=== PATIENT | male | born 1945 ===

== ENCOUNTER 2017-09-02 14:45 | Observation (INO) | payer MEDICARE, MEDICAID ==
[2017-09-02 14:45] VITALS: BMI 28.1
[2017-09-02] MEDS ORDERED: Sodium Chloride 0.9% 500 ML IV STA (15:19)
--- NOTE | 2017-09-02 15:19 | ED PDOC ---
HPI: Chest Pain Time Seen by Provider: 09/02/17 15:00 Chief Complaint (Nursing): Chest Pain Chief Complaint (Provider): Chest Pain History Per: Patient History/Exam Limitations: no limitations Onset/Duration Of Symptoms: Days (x1) Current Symptoms Are (Timing): Gone Now Additional Complaint(s): 72 year old male with a past medical history of asthma, diabetes, and hypercholesterolemia, presents to the emergency department complaining of chest pain, onset this morning. Currently, pain has improved. He states pain was non- radiating. Denies any associated nausea, vomiting, diarrhea, shortness of breath , headache, leg swelling, dizziness, numbness, or weakness. PMD: Dr. Vinod Ricci Past Medical History Reviewed: Historical Data, Nursing Documentation, Vital Signs Vital Signs: Last Vital Signs Temp 97.6 F 09/02/17 14:55 Pulse 100 H 09/02/17 15:23 Resp 20 09/02/17 14:55 BP 193/96 H 09/02/17 14:55 Pulse Ox 97 09/02/17 15:22 - Medical History PMH: Asthma, Diabetes, HTN, Hypercholesterolemia Denies: HIV, Chronic Kidney Disease - Family History Family History: States: Unknown Family Hx - Home Medications Home Medications: Ambulatory Orders Medication Instructions Recorded Atenolol [Tenormin] 50 mg PO DAILY 03/14/16 Isosorbide Mononitrate ER [Imdur 30 mg PO DAILY 03/14/16 ER] Levothyroxine [Synthroid] 50 mcg PO 0630 03/14/16 glyBURIDE [Micronase] 5 mg PO DAILY 03/14/16 - Allergies Allergies/Adverse Reactions: Allergies Allergy/AdvReac Type Severity Reaction Status Date / Time No Known Allergies Allergy Verified 08/20/14 12:39 Review of Systems ROS Statement: Except As Marked, All Systems Reviewed And Found Negative Constitutional: Negative for: Fever, Chills Cardiovascular: Positive for: Chest Pain Respiratory: Negative for: Shortness of Breath Gastrointestinal: Negative for: Nausea, Vomiting, Diarrhea Neurological: Negative for: Weakness, Numbness, Headache, Dizziness Physical Exam - Reviewed Nursing Documentation Reviewed: Yes Vital Signs Reviewed: Yes - Physical Exam Appears: Positive for: Non-toxic, No Acute Distress Head Exam: Positive for: ATRAUMATIC, NORMAL INSPECTION, NORMOCEPHALIC Skin: Positive for: Normal Color, Warm, Dry Eye Exam: Positive for: EOMI, Normal appearance, PERRL ENT: Positive for: Normal ENT Inspection Neck: Positive for: Normal, Painless ROM Cardiovascular/Chest: Positive for: Regular Rate, Rhythm. Negative for: Murmur Respiratory: Positive for: Normal Breath Sounds. Negative for: Accessory Muscle Use, Respiratory Distress Pulses-Dorsalis Pedis (L): 2+ Pulses-Dorsalis Pedis (R): 2+ Gastrointestinal/Abdominal: Positive for: Normal Exam, Soft. Negative for: Tenderness Back: Positive for: Normal Inspection. Negative for: L CVA Tenderness, R CVA Tenderness, Vertebral Tenderness Extremity: Positive for: Normal ROM. Negative for: Tenderness, Pedal Edema, Calf Tenderness, Deformity Neurologic/Psych: Positive for: Alert, Oriented (x3). Negative for: Motor/ Sensory Deficits - Laboratory Results Result Diagrams: 09/02/17 15:36 09/02/17 15:38 Interpretation Of Abn Labs: no acute - ECG ECG: Positive for: Interpreted By Me, Viewed By Me ECG Rhythm: Positive for: Sinus Rhythm, Right Bundle Branch Block Interpretation Of Abn EKG: similar to old O2 Sat by Pulse Oximetry: 97 (RA) Pulse Ox Interpretation: Normal - Radiology X-Ray: Interpreted by Me, Viewed By Mo X-Ray Interpretation: No Acute Disease - Progress ED Course And Treament: 1839: Stable. Pain free. Tolerated PO. Will need further eval for acs. Multiple risk factors. Spoke with Dr. Massey. Will admit obs. Medical Decision Making Medical Decision Making: Time: 15:17 Initial Plan: --EKG --CMP --Troponin I --CBC w/ differential --PTT --Prothrombin time --Chest x-ray --Aspirin 325 mg PO --IV fluids 500 ml at 100 mls/hr --Reevaluation Scribe Attestation: Documented by Abigail Booth, acting as a scribe for Johnnie Andre MD Provider Scribe Attestation: All medical record entries made by the Scribe were at my direction and personally dictated by me. I have reviewed the chart and agree that the record accurately reflects my personal performance of the history, physical exam, medical decision making, and the department course for this patient. I have also personally directed, reviewed, and agree with the discharge instructions and disposition Disposition - Clinical Impression Clinical Impression: Chest pain - Patient ED Disposition Is Patient to be Admitted: Yes Counseled Patient/Family Regarding: Studies Performed, Diagnosis - Disposition Disposition Time: 18:39 Condition: FAIR - Pt Status Changed To: Hospital Disposition Of: Observation - POA Present On Arrival: None Core Measure Indicators: Chest Pain
[2017-09-02 15:45] LABS: BASO % 0.7 % (0.0-2.0); EOS # 0.2 K/uL (0.0-0.7); EOS % 3.9 % (0.0-4.0); HEMOGLOBIN 13.1 g/dL (12.0-18.0); LYMPH # 0.9 K/uL (1.0-4.3); LYMPH % 17.6 % (20.0-40.0); MEAN CORPUSCULAR HEMOGLOBIN 30.1 pg (27.0-31.0); MEAN CORPUSCULAR HGB CONC 33.8 g/dL (33.0-37.0); MEAN PLATELET VOLUME 8.1 fl (7.2-11.7); MONO # 0.3 K/uL (0.0-0.8); MONO % 5.9 % (0.0-10.0); NEUT # 3.7 K/uL (1.8-7.0); NEUT % 71.9 % (50.0-75.0); NRBC % 0.2 % (0.0-0.0); RBC 4.36 Mil/uL (4.40-5.90); RED CELL DISTRIBUTION WIDTH 13.7 % (11.5-14.5); WHITE BLOOD COUNT 5.2 K/uL (4.8-10.8)
[2017-09-02 15:52] LABS: ALB/GLOB RATIO 1.5 (1.0-2.1); ALBUMIN 4.4 g/dL (3.5-5.0); ALT/SGPT 29 U/L (21-72); AST/SGOT 26 U/L (17-59); BLOOD UREA NITROGEN 16 mg/dl (9-20); CALCIUM 9.7 mg/dL (8.4-10.2); GFR AFRICAN-AMERICAN > 60; GFR NON-AFRICAN AMERICAN > 60
[2017-09-02 15:56] LABS: PARTIAL THROMBOPLASTIN TIME 28.5 Seconds (25.6-37.1); PROTHROMBIN TIME 11.1 Seconds (9.8-13.1)
--- NOTE | 2017-09-02 16:38 | RAD ---
HISTORY: Dyspnea COMPARISON: 03/07/2016 FINDINGS: LUNGS: No active pulmonary disease. PLEURA: No significant pleural effusion identified, no pneumothorax apparent. CARDIOVASCULAR: No radiographic findings to suggest acute or significant cardiovascular disease. OSSEOUS STRUCTURES: No significant abnormalities. VISUALIZED UPPER ABDOMEN: Normal. OTHER FINDINGS: None. IMPRESSION: No active disease. No significant interval change compared to the prior examination(s).
--- NOTE | 2017-09-02 19:41 | CP.PCM.HP ---
History of Present Illness - History of Present Illness History of Present Illness: 72 yo male with history of HTN, DM2, HLD and Asthma came in because of mid- chest pain since this morning. Pain was intermittent, non-radiating and not associated with nausea, vomiting or SOB. He decided to seek consultation when condition persisted in to the afternoon. Present on Admission - Present on Admission Any Indicators Present on Admission: No History of DVT/PE: No History of Uncontrolled Diabetes: No Urinary Catheter: No Decubitus Ulcer Present: No Review of Systems - Review of Systems All systems: reviewed and no additional remarkable complaints except (aside from those mentioned above, 12 point system review were negative by me) Past Patient History - Tetanus Immunizations Tetanus Immunization: Unknown - Past Medical History & Family History Past Medical History?: Yes Past Family History: Reviewed and not pertinent - Past Social History Smoking Status: Never Smoked Alcohol: Occasional Drugs: Denies - CARDIAC Hx Hypercholesterolemia: Yes Hx Hypertension: Yes - PULMONARY Hx Asthma: Yes - NEUROLOGICAL Hx Neurological Disorder: Yes Other/Comment: Cervical Spinal Stenosis, S/P Laminectomy 03/2016 - HEENT Hx HEENT Problems: No - RENAL Hx Chronic Kidney Disease: No - ENDOCRINE/METABOLIC Hx Endocrine Disorders: Yes Hx Diabetes Mellitus Type 2: Yes - HEMATOLOGICAL/ONCOLOGICAL Hx Human Immunodeficiency Virus (HIV): No - INTEGUMENTARY Hx Dermatological Problems: No - MUSCULOSKELETAL/RHEUMATOLOGICAL Hx Musculoskeletal Disorders: No Hx Falls: Yes Other/Comment: Intoxicated and fell while trying to get out of motorized wheelchair - GASTROINTESTINAL Hx Gastrointestinal Disorders: No - GENITOURINARY/GYNECOLOGICAL Hx Genitourinary Disorders: No - PSYCHIATRIC Hx Substance Use: Yes (1 case of beer a day) - SURGICAL HISTORY Hx Surgeries: Yes Other/Comment: S/P Decompression Laminectomy - ANESTHESIA Hx Anesthesia: Yes Hx Anesthesia Reactions: No Hx Malignant Hyperthermia: No Meds Allergies/Adverse Reactions: Allergies Allergy/AdvReac Type Severity Reaction Status Date / Time No Known Allergies Allergy Verified 08/20/14 12:39 Physical Exam - Constitutional Appears: No Acute Distress - Head Exam Head Exam: ATRAUMATIC - Eye Exam Eye Exam: absent: Scleral icterus - ENT Exam ENT Exam: Mucous Membranes Moist - Neck Exam Neck exam: Negative for: Meningismus - Respiratory Exam Respiratory Exam: absent: Rhonchi, Wheezes, Respiratory Distress - Cardiovascular Exam Cardiovascular Exam: REGULAR RHYTHM, +S1, +S2 - GI/Abdominal Exam GI & Abdominal Exam: Soft. absent: Tenderness - Rectal Exam Rectal Exam: Deferred - Extremities Exam Extremities exam: Negative for: calf tenderness, pedal edema - Back Exam Back exam: absent: tenderness - Neurological Exam Neurological exam: Alert, Oriented x3 - Psychiatric Exam Psychiatric exam: Normal Affect - Skin Skin Exam: Dry, Intact Results - Vital Signs Recent Vital Signs: Last Vital Signs Temp 97.6 F 09/02/17 14:55 Pulse 100 H 09/02/17 15:23 Resp 20 09/02/17 14:55 BP 193/96 H 09/02/17 14:55 Pulse Ox 97 09/02/17 18:51 - Labs Result Diagrams: 09/02/17 15:36 09/02/17 15:38 Labs: Laboratory Results - last 24 hr 09/02/17 09/02/17 09/02/17 15:36 15:38 15:38 WBC 5.2 RBC 4.36 L Hgb 13.1 Hct 38.8 MCV 89.0 D MCH 30.1 MCHC 33.8 RDW 13.7 Plt Count 195 MPV 8.1 Neut % (Auto) 71.9 Lymph % (Auto) 17.6 L [place] % (Auto) 5.9 Eos % (Auto) 3.9 Baso % (Auto) 0.7 Neut # 3.7 Lymph # 0.9 L [place] # 0.3 Eos # 0.2 Baso # 0.0 PT 11.1 INR 1.0 APTT 28.5 Sodium 141 Potassium 3.9 Chloride 100 Carbon Dioxide 23 Anion Gap 22 H BUN 16 Creatinine 1.1 Est GFR ( Amer) > 60 Est GFR (Non-Af Amer) > 60 Random Glucose 316 H Calcium 9.7 Total Bilirubin 0.4 AST 26 ALT 29 Alkaline Phosphatase 67 Troponin I < 0.0120 Total Protein 7.3 Albumin 4.4 Globulin 2.9 Albumin/Globulin Ratio 1.5 Assessment & Plan - Assessment and Plan (Free Text) Assessment: 72 yo male with history of HTN, DM2 and HLD came in because of mid-chest pain since this morning. Pain was intermittent, non-radiating and not associated with nausea, vomiting or SOB. He decided to seek consultation when condition persisted in to the afternoon. 1. Chest Pain pain still present on mid-chest but subsiding serial Troponins and EKG ASA 81mg PO daily 2. HLD low fats, low cholesterol diet lipid profile in am 3. HTN BP elevated patient has not been compliant with medication Atenolol 50mg PO daily Isosorbide ER 30mg PO daily 4. DM2 BS uncontrolled Glyburide 5mg PO daily accuchek ACHS with low Lispro coverage diabetic diet 5. DVT prophylaxis Lovenox 40mg SC daily
[2017-09-03 05:36] VITALS: RESP 18
[2017-09-03] MEDS ORDERED: Influenza Vaccine 18yr & older 0.5 ML/45 MCG SYR IM ONE (06:00)
[2017-09-03] MEDS ORDERED: Pneumococcal 23-Valent Vaccine IM ONE (06:00)
[2017-09-03] MEDS ORDERED: Levothyroxine 50 MCG TAB PO SCH (06:30)
[2017-09-03 07:02] LABS: BASO # 0.1 K/uL (0.0-0.2); BASO % 0.8 % (0.0-2.0); EOS # 0.6 K/uL (0.0-0.7); EOS % 7.9 % (0.0-4.0); HEMOGLOBIN 12.9 g/dL (12.0-18.0); LYMPH # 1.4 K/uL (1.0-4.3); MEAN CELL VOLUME 88.6 fl (80.0-94.0); MEAN CORPUSCULAR HEMOGLOBIN 29.8 pg (27.0-31.0); MEAN CORPUSCULAR HGB CONC 33.6 g/dL (33.0-37.0); MEAN PLATELET VOLUME 8.6 fl (7.2-11.7); MONO # 0.6 K/uL (0.0-0.8); MONO % 8.1 % (0.0-10.0); NEUT # 4.5 K/uL (1.8-7.0); NEUT % 63.2 % (50.0-75.0); NRBC % 0.1 % (0.0-0.0); RBC 4.33 Mil/uL (4.40-5.90); RED CELL DISTRIBUTION WIDTH 13.8 % (11.5-14.5); WHITE BLOOD COUNT 7.1 K/uL (4.8-10.8)
[2017-09-03 07:32] LABS: BLOOD UREA NITROGEN 15 mg/dl (9-20); CALCIUM 9.5 mg/dL (8.4-10.2); GFR AFRICAN-AMERICAN > 60; GFR NON-AFRICAN AMERICAN > 60; HDL CHOLESTEROL 49 MG/DL (30-70)
[2017-09-03 07:43] LABS: LDL CHOLESTEROL 57 mg/dL (0-129)
[2017-09-03 07:54] VITALS: O2SAT 97
[2017-09-03] MEDS ORDERED: Pantoprazole 40 mg EC Tab PO SCH (09:00)
[2017-09-03] MEDS ORDERED: Enoxaparin 40 mg Syringe SC SCH (09:00)
--- NOTE | 2017-09-03 11:19 | CP.PCM.DIS ---
Provider - Provider Date of Admission: 09/02/17 18:49 Attending physician: Ron Massey MD Time Spent in preparation of Discharge (in minutes): 25 Diagnosis - Discharge Diagnosis (1) Chest pain Status: Acute Comment: 3 series of Troponins negative for ischemic events. patient has been pain free since arriving in telemetry (2) Diabetes 1.5, managed as type 2 Status: Chronic Comment: BS relatively controlled. continue Glyburide 5mg PO daily (3) Hypertension Status: Chronic Comment: BP stable. continue Atenolol and [facility] Hospital Course - Lab Results Lab Results: Most Recent Lab Values WBC 7.1 K/uL (4.8-10.8) 09/03/17 06:00 RBC 4.33 Mil/uL (4.40-5.90) L 09/03/17 06:00 Hgb 12.9 g/dL (12.0-18.0) 09/03/17 06:00 Hct 38.3 % (35.0-51.0) 09/03/17 06:00 MCV 88.6 fl (80.0-94.0) 09/03/17 06:00 MCH 29.8 pg (27.0-31.0) 09/03/17 06:00 MCHC 33.6 g/dL (33.0-37.0) 09/03/17 06:00 RDW 13.8 % (11.5-14.5) 09/03/17 06:00 Plt Count 189 K/uL (130-400) 09/03/17 06:00 MPV 8.6 fl (7.2-11.7) 09/03/17 06:00 Neut % (Auto) 63.2 % (50.0-75.0) 09/03/17 06:00 Lymph % (Auto) 20.0 % (20.0-40.0) 09/03/17 06:00 [place] % (Auto) 8.1 % (0.0-10.0) 09/03/17 06:00 Eos % (Auto) 7.9 % (0.0-4.0) H 09/03/17 06:00 Baso % (Auto) 0.8 % (0.0-2.0) 09/03/17 06:00 Neut # 4.5 K/uL (1.8-7.0) 09/03/17 06:00 Lymph # 1.4 K/uL (1.0-4.3) 09/03/17 06:00 [place] # 0.6 K/uL (0.0-0.8) 09/03/17 06:00 Eos # 0.6 K/uL (0.0-0.7) 09/03/17 06:00 Baso # 0.1 K/uL (0.0-0.2) 09/03/17 06:00 PT 11.1 Seconds (9.8-13.1) 09/02/17 15:38 INR 1.0 (0.9-1.2) 09/02/17 15:38 APTT 28.5 Seconds (25.6-37.1) 09/02/17 15:38 Sodium 138 mmol/l (132-148) 09/03/17 04:25 Potassium 3.6 MMOL/L (3.6-5.0) 09/03/17 04:25 Chloride 100 mmol/L (98-107) 09/03/17 04:25 Carbon Dioxide 27 mmol/L (22-30) 09/03/17 04:25 Anion Gap 15 (10-20) 09/03/17 04:25 BUN 15 mg/dl (9-20) 09/03/17 04:25 Creatinine 1.0 mg/dl (0.8-1.5) 09/03/17 04:25 Est GFR ( Amer) > 60 09/03/17 04:25 Est GFR (Non-Af Amer) > 60 09/03/17 04:25 POC Glucose (mg/dL) 250 mg/dL (65-110) H 09/03/17 10:23 Random Glucose 152 mg/dL (75-110) H 09/03/17 04:25 Calcium 9.5 mg/dL (8.4-10.2) 09/03/17 04:25 Total Bilirubin 0.4 mg/dl (0.2-1.3) 09/02/17 15:38 AST 26 U/L (17-59) 09/02/17 15:38 ALT 29 U/L (21-72) 09/02/17 15:38 Alkaline Phosphatase 67 U/L (38-126) 09/02/17 15:38 Troponin I < 0.01 ng/mL 09/03/17 08:15 Total Protein 7.3 G/DL (6.3-8.2) 09/02/17 15:38 Albumin 4.4 g/dL (3.5-5.0) 09/02/17 15:38 Globulin 2.9 gm/dL (2.2-3.9) 09/02/17 15:38 Albumin/Globulin Ratio 1.5 (1.0-2.1) 09/02/17 15:38 Triglycerides 91 mg/DL (0-149) 09/03/17 04:25 Cholesterol 128 mg/dL (0-199) 09/03/17 04:25 LDL Cholesterol Direct 57 mg/dL (0-129) 09/03/17 04:25 HDL Cholesterol 49 MG/DL (30-70) 09/03/17 04:25 TSH 3rd Generation 11.30 mIU/ML (0.46-4.68) H 09/02/17 23:30 - Hospital Course Hospital Course: 72 yo male with history of HTN, DM2 and HLD came in because of mid-chest pain. Pain had not recur since arriving in telemetry. Serial Troponins and EKG were negative for ischemic events. Patient discharged in stable condition. Discharge Exam - Head Exam Head Exam: ATRAUMATIC - Eye Exam Eye Exam: absent: Scleral icterus - ENT Exam ENT Exam: Mucous Membranes Moist - Respiratory Exam Respiratory Exam: absent: Wheezes, Respiratory Distress - Cardiovascular Exam Cardiovascular Exam: REGULAR RHYTHM, +S1, +S2 - GI/Abdominal Exam GI & Abdominal Exam: Soft. absent: Tenderness - Rectal Exam Rectal Exam: Deferred - Extremities Exam Extremities exam: pedal pulses present - Neurological Exam Neurological exam: Alert, Oriented x3 - Psychiatric Exam Psychiatric exam: Normal Affect - Skin Skin Exam: Dry, Intact Discharge Plan - Follow Up Plan Condition: FAIR Disposition: HOME/ ROUTINE
[2017-09-03 12:03] VITALS: BP 109/69; PULSE 71; TEMP 98.1
--- NOTE | 2017-09-04 11:27 | CARD ---
APPROVED REPORT EKG Measurement Heart [id number] CT [id number] <Conclusion> Sinus tachycardia Left axis deviation Right bundle branch block Septal infarct, age undetermined Abnormal ECG
== END 2017-09-03 14:41 | disposition home or self-care (01) ==
LOC: H.ER 14:45 → H.ERHOLD 18:49 → H.TEL 09-03 00:24
DX: R07.9 Chest pain, unspecified (principal); E11.9 Type 2 diabetes mellitus without complications; E78.5 Hyperlipidemia, unspecified; I10 Essential (primary) hypertension; J45.909 Unspecified asthma, uncomplicated; M48.02 Spinal stenosis, cervical region; Z23 Encounter for immunization; Z91.14 Patient's other noncompliance with medication regimen; Z79.82 Long term (current) use of aspirin
CPT/HCPCS: 36415; 71045; 80048; 80053; 80061; 82948; 84443; 84484; 85025; 85610; 85730; 90732; 99285; G0008; G0009; G0378; J1650; J7040; Q2035